=== PATIENT | female | born 1985 | race Caucasian/White ===

== ENCOUNTER 2017-11-24 14:56 | Emergency (ER) | payer OTHER, SELFPAY ==
--- NOTE | 2017-11-24 16:38 | RAD REPORT ---
EXAM DESCRIPTION: CT - Stone Protocol - 11/24/2017 4:12 pm CLINICAL HISTORY: Left mid back pain, dysuria COMPARISON: None. TECHNIQUE: Axial 5 mm thick images were obtained without oral or IV contrast. The [id number] span s the entirety of the system including uppermost abdomen and lung bases. All CT scans are performed using dose optimization technique as appropriate and may include automated exposure control or mA/KV adjustment according to patient size. FINDINGS: No hydronephrosis is present and no obstructing ureteral calculi. No suspicious renal mass es. Isodense masses and pyelonephritis are not excluded on a stone protocol CT scan. Mostly contracte d urinary bladder shows no gross abnormality. Uterus and ovaries show no suspicious finding. Normal f or age sized cysts seen. Largest cyst in the left ovary is 2.0 cm. No evidence for cyst rupture or he morrhage. Nabothian cyst is present in the lower cervix. IUD is in place appearing well positioned. Liver and spleen show no suspicious findings. Gallbladder is mostly contracted. No biliary tree dilat ation. No significant adrenal finding. There is masslike fullness at the pancreatic tail. Pancreatic parenchyma cannot be distinguished from adjacent vasculature. There is no stranding seen in the adjac ent fat. No suspicious bowel findings. The appendix is identified normal. No hernia, mass or bulky lymphadenopathy noted. No free air, free fluid or inflammatory stranding. No significant bony abnormality. IMPRESSION: No hydronephrosis, obstructing calculus or acute finding. Isodense masses and pyelone phritis are not excluded. Masslike fullness at the pancreatic tail may simply be summation artifact.Exam is limited by the abse nce of oral and IV contrast. Given the patient history of left mid abdomen pain, a repeat CT study of the abdomen with oral and IV contrast could be performed. No acute GI or INSURANCE CASE MANAGER process.
[2017-11-24 16:52] LABS: Calcium Oxalate Crystals- Ur FEW (NONE SEEN); Urine Bacteria <20 /HPF (<20); Urine Culture Reflex Order NOT NEEDED; Urine Mucus SLIGHT /HPF (NONE SEEN); Urine RBC <5 /HPF (NONE SEEN)
--- NOTE | 2017-11-24 17:12 | EDPHYS ---
Physician Documentation [facility] Name: Janelle Orr Age: 32 yrs Sex: Female : 1985 Arrival Date: 11/24/2017 Time: 15:00 Bed 15 Private MD: ED Physician Stefano Montanez HPI: 11/24 17:07 This 32 yrs old Female presents to ER via Ambulatory with complaints of Back jr8 Pain. 17:07 The patient presents with pain that is acute, with no known mechanism of injury. The jr8 symptoms are located in the left flank. Onset: The symptoms/episode began/occurred gradually. The pain does not radiate. Associated signs and symptoms: The patient has no apparent associated signs or symptoms. The problem was sustained from unknown cause. Modifying factors: The patient symptoms are alleviated by nothing, the patient symptoms are aggravated by movement. Severity of symptoms: At their worst the symptoms were moderate, in the emergency department the symptoms have improved. The patient has experienced similar episodes in the past, several times. The patient has not recently seen a physician. 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 - Social history:: Smoking status: Patient/guardian denies using tobacco. - Ebola Screening: : Patient negative for fever greater than or equal to 101.5 degrees Fahrenheit, and additional compatible Ebola Virus Disease symptoms Patient denies exposure to infectious person Patient denies travel to an Ebola-affected area in the 21 days before illness onset No symptoms or risks identified at this time. ROS: 17:07 Eyes: Negative for injury, pain, redness, and discharge, ENT: Negative for injury, jr8 pain, and discharge, Neck: Negative for injury, pain, and swelling, Cardiovascular: Negative for chest pain, palpitations, and edema, Respiratory: Negative for shortness of breath, cough, wheezing, and pleuritic chest pain, Abdomen/GI: Negative for abdominal pain, nausea, vomiting, diarrhea, and constipation, MS/Extremity: Negative for injury and deformity, Skin: Negative for injury, rash, and discoloration, Neuro: Negative for headache, weakness, numbness, tingling, and seizure. 17:07 Back: Positive for pain with movement, flank pain. Exam: 17:07 Eyes: Pupils equal round and reactive to light, extra-ocular motions intact. Lids and jr8 lashes normal. Conjunctiva and sclera are non-icteric and not injected. Cornea within normal limits. Periorbital areas with no swelling, redness, or edema. ENT: Nares patent. No nasal discharge, no septal abnormalities noted. Tympanic membranes are normal and external auditory canals are clear. Oropharynx with no redness, swelling, or masses, exudates, or evidence of obstruction, uvula midline. Mucous membranes moist. Neck: Trachea midline, no thyromegaly or masses palpated, and no cervical lymphadenopathy. Supple, full range of motion without nuchal rigidity, or vertebral point tenderness. No Meningismus. Cardiovascular: Regular rate and rhythm with a normal S1 and S2. No gallops, murmurs, or rubs. Normal PMI, no JVD. No pulse deficits. Respiratory: Lungs have equal breath sounds bilaterally, clear to auscultation and percussion. No rales, rhonchi or wheezes noted. No increased work of breathing, no retractions or nasal flaring. Abdomen/GI: Soft, non-tender, with normal bowel sounds. No distension or tympany. No guarding or rebound. No evidence of tenderness throughout. Skin: Warm, dry with normal turgor. Normal color with no rashes, no lesions, and no evidence of cellulitis. MS/ Extremity: Pulses equal, no cyanosis. Neurovascular intact. Full, normal range of motion. Neuro: Awake and alert, GCS 15, oriented to person, place, time, and situation. Cranial nerves II-XII grossly intact. Motor strength 5/5 in all extremities. Sensory grossly intact. Cerebellar exam normal. Normal gait. 17:07 Back: pain, that is moderate, of the left flank, ROM is painful, normal spinal alignment noted, CVA tenderness, is absent. Vital Signs: 15:18 BP 151 / 88; Pulse 97; Resp 16; Temp 97.8; Pulse Ox 98% on R/A; Weight 90.72 kg; Height aj 5 ft. 4 in. (162.56 cm); 15:30 BP 130 / 73; Pulse 79; Resp 16 S; Pulse Ox 98% on R/A; jl7 16:22 BP 131 / 85; Pulse 74; Resp 16 S; Pulse Ox 99% on R/A; jl7 17:35 BP 125 / 80; Pulse 75; Resp 16 S; Pulse Ox 100% on R/A; jl7 15:18 Body Mass Index 34.33 (90.72 kg, 162.56 cm) aj MDM: 15:22 Patient medically screened. jr8 17:09 Data reviewed: vital signs, nurses notes, lab test result(s), radiologic studies, CT jr8 scan. Data interpreted: Pulse oximetry: on room air is 99 %. Interpretation: normal. Counseling: I had a detailed discussion with the patient and/or guardian regarding: the historical points, exam findings, and any diagnostic results supporting the discharge/admit diagnosis, radiology results, the need for outpatient follow up, a family practitioner, to return to the emergency department if symptoms worsen or persist or if there are any questions or concerns that arise at home. ED course: Patient without abdominal tenderness with palpation or at rest. Less likely for the pancreatic findings to be mass like. More likely artifact. Patient only has pain to left back/flank region. Will put on medication and told to f/u with PCP. Family and patient good with this . 11/24 15:32 Order name: Urine Microscopic Only; Complete Time: 16:54 jr8 11/24 15:40 Order name: Urine Dipstick--Ancillary (enter results) 11/24 15:32 Order name: Urine Test (obtain specimen); Complete Time: 15:33 jr8 11/24 15:32 Order name: Urine Dipstick-Ancillary (obtain specimen); Complete Time: 15:33 jr8 11/24 15:40 Order name: Urine --Ancillary (enter results) 11/24 15:54 Order name: CT Stone Protocol; Complete Time: 16:39 jr8 Administered Medications: No medications were administered Disposition: 17:55 Co-signature as Attending Physician, Stefano Montanez MD. rn Disposition: 11/24/17 17:11 Discharged to Home. Impression: Back pain. - Condition is Stable. - Discharge Instructions: Back Pain, Adult. - Prescriptions for Cyclobenzaprine 10 mg Oral Tablet - take 1 tablet by ORAL route every 8 hours As needed; 30 tablet. Ultracet 37.5- 325 mg Oral Tablet - take 1 tablet by ORAL route every 6 hours - for up to 5 days; do not exceed 8 tablets per day.; 30 tablet. - Medication Reconciliation Form, Thank You Letter, Antibiotic Education, Prescription Opioid Use form. - Follow up: Private Physician; When: 2 - 3 days; Reason: Recheck today's complaints, Continuance of care, Re-evaluation by your physician. - Problem is new. - Symptoms have improved. Signatures: Dispatcher [employer] EDMS Janelle Parker RN RN Stefano Myers MD MD rn Roszak, Josh, PA PA jrAnne Marie Whittington RN RN jl7 Corrections: (The following items were deleted from the chart) 17:35 17:11 11/24/2017 17:11 Discharged to Home. Impression: Back pain. Condition is Stable. jl7 Forms are Medication Reconciliation Form, Thank You Letter, Antibiotic Education, Prescription Opioid Use. Follow up: Private Physician; When: 2 - 3 days; Reason: Recheck today's complaints, Continuance of care, Re-evaluation by your physician. Problem is new. Symptoms have improved. jr8
--- NOTE | 2017-11-24 17:12 | ER ---
Nurse's Notes [facility] Name: Janelle Orr Age: 32 yrs Sex: Female : 1985 Arrival Date: 11/24/2017 Time: 15:00 Bed 15 Private MD: Diagnosis: Back pain Presentation: 11/24 15:17 Presenting complaint: Patient states: Left mid back pain for 3 weeks and burning with aj urination. Transition of care: patient was not received from another setting of care. Onset of symptoms was November 05, 2017. Risk Assessment: Do you want to hurt yourself or someone else? Patient reports no desire to harm self or others. Initial Sepsis Screen: Does the patient meet any 2 criteria? No. Patient's initial sepsis screen is negative. Does the patient have a suspected source of infection? No. Patient's initial sepsis screen is negative. Care prior to arrival: None. 15:17 Method Of Arrival: Ambulatory aj 15:17 Acuity: SHAGGY 3 aj Triage Assessment: 15:18 General: Appears in no apparent distress. comfortable, Behavior is cooperative, aj anxious. Pain: Complains of pain in left mid back. Neuro: Level of Consciousness is awake, alert, obeys commands, Oriented to person, place, time, situation, Appropriate for age. Respiratory: Airway is patent Respiratory effort is even, unlabored, Respiratory pattern is regular, symmetrical. : Reports burning with urination, pain in left in lower back. Musculoskeletal: Range of motion: intact in all extremities. 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 - Social history:: Smoking status: Patient/guardian denies using tobacco. - Ebola Screening: : Patient negative for fever greater than or equal to 101.5 degrees Fahrenheit, and additional compatible Ebola Virus Disease symptoms Patient denies exposure to infectious person Patient denies travel to an Ebola-affected area in the 21 days before illness onset No symptoms or risks identified at this time. Screenin:22 Abuse screen: Denies threats or abuse. Denies injuries from another. Nutritional jl7 screening: No deficits noted. Tuberculosis screening: No symptoms or risk factors identified. Fall Risk None identified. Total Ibarra Fall Scale indicates No Risk (0-24 pts). Assessment: 15:30 General: Appears in no apparent distress. uncomfortable, Behavior is calm, cooperative, jl7 appropriate for age. Pain: Complains of pain in left mid back. Neuro: Level of Consciousness is awake, alert, obeys commands, Oriented to person, place, time, situation. Cardiovascular: Patient's skin is warm and dry. Respiratory: Airway is patent Respiratory effort is even, unlabored, Respiratory pattern is regular, symmetrical. GI: No signs and/or symptoms were reported involving the gastrointestinal system. : Reports burning with urination. EENT: No signs and/or symptoms were reported regarding the EENT system. Derm: Skin is pink, warm \T\ dry. 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 Vital Signs: 15:18 BP 151 / 88; Pulse 97; Resp 16; Temp 97.8; Pulse Ox 98% on R/A; Weight 90.72 kg; Height aj 5 ft. 4 in. (162.56 cm); 15:30 BP 130 / 73; Pulse 79; Resp 16 S; Pulse Ox 98% on R/A; jl7 16:22 BP 131 / 85; Pulse 74; Resp 16 S; Pulse Ox 99% on R/A; jl7 17:35 BP 125 / 80; Pulse 75; Resp 16 S; Pulse Ox 100% on R/A; jl7 15:18 Body Mass Index 34.33 (90.72 kg, 162.56 cm) ED Course: 15:00 Patient arrived in ED. mr 15:18 Triage completed. aj 15:18 Arm band placed on right wrist. Patient placed in an exam room. aj 15:21 Anne Marie Malloy, JUAN is Primary Nurse. jl7 15:22 Reinaldo Sykes PA is PHCP. jr8 15:22 Stefano Montanez MD is Attending Physician. jr8 15:33 Urine collected: clean catch specimen, cloudy. 5 15:33 Urine Microscopic Only Sent. 5 15:58 Radiology exam delayed due to test not completed at this time. jg6 16:12 CT Stone Protocol In Process Unspecified. EDMS 16:12 CT completed. Patient tolerated procedure well. Patient moved back from CT. vr 16:22 Patient has correct armband on for positive identification. Placed in gown. Bed in low jl7 position. Call light in reach. Side rails up X 1. Pulse ox on. NIBP on. Warm blanket given. 17:34 No provider procedures requiring assistance completed. Patient did not have IV access jl7 during this emergency room visit. Administered Medications: No medications were administered Outcome: 17:11 Discharge ordered by . mirlande 17:34 Discharged to home ambulatory. jl7 17:34 Condition: stable 17:34 Discharge instructions given to patient, family, Instructed on discharge instructions, follow up and referral plans. medication usage, Demonstrated understanding of instructions, follow-up care, medications, Prescriptions given X 2. 17:35 Patient left the ED. jl7 Signatures: Dispatcher [employer] EDMS Janelle Parker, RN RN bettye Quintero, Lawanda mr ChenGabriella Reinaldo Sykes, RATNA PA jrBelkis Sorto Anne Marie Aragon RN RN jl7 Denise Ly Corrections: (The following items were deleted from the chart) 16:24 16:22 Fall Risk IV access (20 points). Total Ibarra Fall Scale indicates No Risk (0-24 jl7 pts). jl7
[2017-11-24 17:43] LABS: Urine Blood 1+ (NEG); Urine Glucose NEGATIVE (NEG); Urine Protein NEGATIVE (NEG); Urine pH 5.5 (5.0-7.0)
[2017-11-24 17:51] VITALS: TEMP 97.8
[2017-11-24 17:55] VITALS: BP 125/80; O2SAT 100
== END 2017-11-24 17:35 | disposition home or self-care (01) ==
LOC: ER 14:56
DX: M54.5 Low back pain (principal); F41.8 Other specified anxiety disorders
CPT/HCPCS: 74176; 76377; 81003; 81015; 81025; 99284

== ENCOUNTER 2017-11-29 17:59 | Emergency (ER) | payer SELFPAY ==
[2017-11-29] MEDS ORDERED: NA CHLORIDE 0.9% 500 ML ONE (18:56)
[2017-11-29 19:08] LABS: Absolute Monocytes 0.6 K/uL (0.1-1.3); Absolute Neutrophil 5.6 K/uL (1.8-8.0); Basophils % 0.5 % (0-1.3); Eosinophils % 1.4 % (0-4.4); Hematocrit 39.2 % (36.0-45.0); Lymphocytes % 24.2 % (15.3-44.8); MCH 28.8 pg (27.0-35.0); MCV 85.9 fL (80-100); MPV 10.5 fL (7.6-11.3); RBC Red Blood Cell Count 4.57 M/uL (3.86-4.86)
[2017-11-29 19:09] LABS: Protime INR 1.06
[2017-11-29 19:26] LABS: ALT/SGPT 21 U/L (12-78); AST/SGOT 14 U/L (15-37); Alkaline Phosphatase 69 U/L (45-117); BUN Blood Urea Nitrogen 11 mg/dL (7-18); Bicarbonate 27 mmol/L (21-32); Bilirubin Direct < 0.1 mg/dL (0-0.2); Bilirubin Total 0.2 mg/dL (0.2-1.0); Glucose Level 71 mg/dL (74-106); Lipase 145 U/L (73-393); Magnesium 2.2 mg/dL (1.8-2.4); NT PRO-BNP 138 pg/mL (<125); Potassium 3.1 mmol/L (3.5-5.1); Protein, Total 8.2 g/dL (6.4-8.2); Sodium Level 141 mmol/L (136-145); Troponin (Emerg Dept Use Only) < 0.02 ng/mL (0.0-0.045)
[2017-11-29 20:12] LABS: Urine Blood NEGATIVE (NEG); Urine Glucose NEGATIVE (NEG); Urine Protein NEGATIVE (NEG); Urine pH 7.5 (5.0-7.0)
--- NOTE | 2017-11-29 20:26 | RAD REPORT ---
EXAM DESCRIPTION: Alen Single View11/29/2017 7:46 pm CLINICAL HISTORY: Chest pain COMPARISON: None FINDINGS: The lungs appear clear of acute infiltrate. The heart is normal size Postsurgical changes involve the chest. IMPRESSION: No acute abnormalities displayed
--- NOTE | 2017-11-29 20:30 | RAD REPORT ---
EXAM DESCRIPTION: CT - Chest For Pe Angio - 11/29/2017 8:20 pm CLINICAL HISTORY: Chest pain COMPARISON: None. TECHNIQUE: Dynamically enhanced axial 3 mm thick images of the chest were obtained during administra tion of <100> mL Isovue 370 IV contrast. Coronal and oblique reconstruction images were generated and reviewed. Exam utilizes a protocol for optimal evaluation of pulmonary arterial tree. Maximum intensity projections 3D imaging was utilized All CT scans are performed using dose optimization technique as appropriate and may include automated exposure control or mA/KV adjustment according to patient size. FINDINGS: A pulmonary embolus is not seen. A thoracic aortic aneurysm is not noted. A pleural effusion is not seen. A pericardial effusion is not seen. A lung consolidation is not present. A 17 millimeter oval density is present within the outer left breast IMPRESSION: Negative for a pulmonary embolism. 17 millimeter oval density within left breast. Nonemergent breast ultrasound is recommended
--- NOTE | 2017-11-29 20:37 | EDPHYS ---
Physician Documentation [facility] Name: Janelle Orr Age: 32 yrs Sex: Female : 1985 Arrival Date: 11/29/2017 Time: 18:02 Bed 23 Private MD: ED Physician Justin Cabrera HPI: 11/29 18:43 This 32 yrs old Female presents to ER via Ambulatory with complaints of Chest latanya Pain, Shortness Of Breath. 18:43 The patient or guardian reports chest pain that is located primarily in the anterior latanya chest wall, bilaterally. DIRECTOR RADIO NEWS: 18:13 LMP N/A - control method bp Historical: - Allergies: 18:13 No Known Allergies; bp - Home Meds: 18:13 Lamictal 200 mg oral tab [Active]; Zoloft 150 MG oral tab 1 tab once daily [Active]; bp - PMHx: 18:13 Anxiety; Depression; bp - Immunization history:: Adult Immunizations up to date. - Social history:: Smoking status: Patient/guardian denies using tobacco. - Ebola Screening: : Patient negative for fever greater than or equal to 101.5 degrees Fahrenheit, and additional compatible Ebola Virus Disease symptoms Patient denies exposure to infectious person Patient denies travel to an Ebola-affected area in the 21 days before illness onset No symptoms or risks identified at this time. - Family history:: not pertinent. ROS: 18:43 Constitutional: Negative for fever, chills, and weight loss, Eyes: Negative for injury, latanya pain, redness, and discharge, ENT: Negative for injury, pain, and discharge, Neck: Negative for injury, pain, and swelling, Abdomen/GI: Negative for abdominal pain, nausea, vomiting, diarrhea, and constipation, Back: Negative for injury and pain, : Negative for injury, bleeding, discharge, and swelling, MS/Extremity: Negative for injury and deformity, Skin: Negative for injury, rash, and discoloration, Neuro: Negative for headache, weakness, numbness, tingling, and seizure, Psych: Negative for depression, anxiety, suicide ideation, homicidal ideation, and hallucinations, Allergy/Immunology: Negative for hives, rash, and allergies, Endocrine: Negative for neck swelling, polydipsia, polyuria, polyphagia, and marked weight changes, Hematologic/Lymphatic: Negative for swollen nodes, abnormal bleeding, and unusual bruising. 18:43 Cardiovascular: Positive for chest pain. 18:43 Respiratory: Positive for shortness of breath. 18:43 Respiratory: Positive for pleurisy. latanya Exam: 18:43 Constitutional: This is a well developed, well nourished patient who is awake, alert, latanya and in no acute distress. Head/Face: Normocephalic, atraumatic. Eyes: Pupils equal round and reactive to light, extra-ocular motions intact. Lids and lashes normal. Conjunctiva and sclera are non-icteric and not injected. Cornea within normal limits. Periorbital areas with no swelling, redness, or edema. ENT: Nares patent. No nasal discharge, no septal abnormalities noted. Tympanic membranes are normal and external auditory canals are clear. Oropharynx with no redness, swelling, or masses, exudates, or evidence of obstruction, uvula midline. Mucous membranes moist. Neck: Trachea midline, no thyromegaly or masses palpated, and no cervical lymphadenopathy. Supple, full range of motion without nuchal rigidity, or vertebral point tenderness. No Meningismus. Chest/axilla: Normal chest wall appearance and motion. Nontender with no deformity. No lesions are appreciated. Cardiovascular: Regular rate and rhythm with a normal S1 and S2. No gallops, murmurs, or rubs. Normal PMI, no JVD. No pulse deficits. Respiratory: Lungs have equal breath sounds bilaterally, clear to auscultation and percussion. No rales, rhonchi or wheezes noted. No increased work of breathing, no retractions or nasal flaring. Abdomen/GI: Soft, non-tender, with normal bowel sounds. No distension or tympany. No guarding or rebound. No evidence of tenderness throughout. Back: No spinal tenderness. No costovertebral tenderness. Full range of motion. Skin: Warm, dry with normal turgor. Normal color with no rashes, no lesions, and no evidence of cellulitis. MS/ Extremity: Pulses equal, no cyanosis. Neurovascular intact. Full, normal range of motion. Neuro: Awake and alert, GCS 15, oriented to person, place, time, and situation. Cranial nerves II-XII grossly intact. Motor strength 5/5 in all extremities. Sensory grossly intact. Cerebellar exam normal. Normal gait. Psych: Awake, alert, with orientation to person, place and time. Behavior, mood, and affect are within normal limits. 18:43 Musculoskeletal/extremity: DVT Exam: No signs of deep vein thrombosis. no pain, no swelling, no tenderness, negative Homans' sign noted on exam, no appreciated bluish discoloration, no erythema, no increased warmth. Vital Signs: 18:13 BP 130 / 84; Pulse 87; Resp 20; Temp 97.8; Pulse Ox 99% ; Weight 90.72 kg; Height 5 ft. bp 4 in. (162.56 cm); 19:01 BP 138 / 78; Pulse 78; Resp 17; Pulse Ox 100% on R/A; lp1 19:45 BP 115 / 61; Pulse 77; Resp 16; Pulse Ox 99% on R/A; lp1 20:30 BP 119 / 64; Pulse 73; Resp 15; Pulse Ox 99% on R/A; lp1 18:13 Body Mass Index 34.33 (90.72 kg, 162.56 cm) bp MDM: 18:25 Patient medically screened. [facility] 18:44 Data reviewed: vital signs, nurses notes, lab test result(s), EKG, radiologic studies, [facility] CT scan, plain films. 11/29 18:41 Order name: Basic Metabolic Panel; Complete Time: 19:48 [facility] 11/29 18:41 Order name: CBC with Diff; Complete Time: 20:03 [facility] 11/29 18:41 Order name: LFT's; Complete Time: 19:48 [facility] 11/29 18:41 Order name: Magnesium; Complete Time: 19:48 [facility] 11/29 18:41 Order name: NT PRO-BNP; Complete Time: 19:48 [facility] 11/29 18:41 Order name: PT-INR; Complete Time: 19:48 [facility] 11/29 18:41 Order name: Troponin (emerg Dept Use Only); Complete Time: 19:48 [facility] 11/29 18:41 Order name: XRAY Chest (1 view); Complete Time: 20:33 [facility] 11/29 18:41 Order name: Lipase; Complete Time: 19:48 [facility] 11/29 18:41 Order name: CT Chest For PE Angio; Complete Time: 20:33 [facility] 11/29 18:44 Order name: Urine Dipstick--Ancillary (enter results); Complete Time: 20:18 11/29 18:44 Order name: Urine --Ancillary (enter results); Complete Time: 20:18 bd 11/29 18:40 Order name: EKG - Nurse/Tech; Complete Time: 18:40 tw2 11/29 18:40 Order name: EKG; Complete Time: 18:41 tw2 11/29 18:41 Order name: Cardiac monitoring; Complete Time: 18:47 [facility] 11/29 18:41 Order name: IV Saline Lock; Complete Time: 18:48 [facility] 11/29 18:41 Order name: Labs collected and sent; Complete Time: 18:48 [facility] 11/29 18:41 Order name: O2 Per Protocol; Complete Time: 18:48 [facility] 11/29 18:41 Order name: O2 Sat Monitoring; Complete Time: 18:48 [facility] 11/29 18:43 Order name: Urine Dipstick-Ancillary (obtain specimen); Complete Time: 18:47 [facility] 11/29 18:43 Order name: Urine Test (obtain specimen); Complete Time: 18:47 [facility] Administered Medications: 18:51 Drug: NS 0.9% 500 ml Route: IV; Rate: bolus; Site: right antecubital; tw2 20:45 Follow up: IV Status: Completed infusion; IV Intake: 500ml lp1 20:43 Drug: Potassium Effervescent Tablet 50 mEq Route: PO; lp1 21:01 Follow up: Response: No adverse reaction lp1 20:43 Drug: D50W 25 ml Route: IVP; Site: right antecubital; lp1 21:01 Follow up: Response: No adverse reaction lp1 Disposition: 11/29/17 20:37 Discharged to Home. Impression: Dyspnea, unspecified, Other chest pain - left breast nodule, follow up outpatient, Hypoglycemia, unspecified, Hypokalemia. - Condition is Stable. - Discharge Instructions: Breast Cyst, Nonspecific Chest Pain, Potassium Content of Foods, Hypoglycemia, Shortness of Breath, Nonspecific Chest Pain, Ieyb-[id number]-Pzaa, Hypoglycemia, Xkiw-vc-Vgbu. - Medication Reconciliation Form, Thank You Letter, Antibiotic Education, Prescription Opioid Use form. - Follow up: Private Physician; When: 2 - 3 days; Reason: Recheck today's complaints, Continuance of care, Re-evaluation by your physician. Follow up: Albaro Gongora; When: 2 - 3 days; Reason: Recheck today's complaints, Re-evaluation by your physician. Follow up: Dell Webber MD; When: 2 - 3 days; Reason: Recheck today's complaints, Re-evaluation by your physician. - Problem is new. - Symptoms have improved. Signatures: Dispatcher [employer] Justin Hess MD MD cha Pena, Laura RN RN lp1 Donna Cole RN RN tw2 Baron Khan RN RN bp Corrections: (The following items were deleted from the chart) 18:48 18:41 EKG - Nurse/Tech ordered. [facility] tw2 20:37 20:37 11/29/2017 20:37 Discharged to Home. Impression: Dyspnea, unspecified; Other latanya chest pain; Hypoglycemia, unspecified; Hypokalemia. Condition is Stable. Discharge Instructions: Nonspecific Chest Pain, Shortness of Breath, Nonspecific Chest Pain, Fjpy-[id number], Potassium Content of Foods, Hypoglycemia, Hypoglycemia, Qtdm-[id number]. Forms are Medication Reconciliation Form, Thank You Letter, Antibiotic Education, Prescription Opioid Use. Follow up: Private Physician; When: 2 - 3 days; Reason: Recheck today's complaints, Continuance of care, Re-evaluation by your physician. Follow up: Albaro Gongora; When: 2 - 3 days; Reason: Recheck today's complaints, Re-evaluation by your physician. Problem is new. Symptoms have improved. [facility] 20:41 20:37 11/29/2017 20:37 Discharged to Home. Impression: Dyspnea, unspecified; Other latanya chest pain; Hypoglycemia, unspecified; Hypokalemia. Condition is Stable. Discharge Instructions: Nonspecific Chest Pain, Shortness of Breath, Nonspecific Chest Pain, Amka-ga-[id number], Potassium Content of Foods, Hypoglycemia, Hypoglycemia, Hpba-eq-Jntu, Breast Cyst. Forms are Medication Reconciliation Form, Thank You Letter, Antibiotic Education, Prescription Opioid Use. Follow up: Private Physician; When: 2 - 3 days; Reason: Recheck today's complaints, Continuance of care, Re-evaluation by your physician. Follow up: Albaro Gongora; When: 2 - 3 days; Reason: Recheck today's complaints, Re-evaluation by your physician. Follow up: Dell Webber; When: 2 - 3 days; Reason: Recheck today's complaints, Re-evaluation by your physician. Problem is new. Symptoms have improved. latanya 21:02 20:41 11/29/2017 20:37 Discharged to Home. Impression: Dyspnea, unspecified; Other lp1 chest pain - left breast nodule, follow up outpatient; Hypoglycemia, unspecified; Hypokalemia. Condition is Stable. Discharge Instructions: Nonspecific Chest Pain, Shortness of Breath, Nonspecific Chest Pain, Ynsq-[id number], Potassium Content of Foods, Hypoglycemia, Hypoglycemia, Zwxj-qs-Nyaz, Breast Cyst. Forms are Medication Reconciliation Form, Thank You Letter, Antibiotic Education, Prescription Opioid Use. Follow up: Private Physician; When: 2 - 3 days; Reason: Recheck today's complaints, Continuance of care, Re-evaluation by your physician. Follow up: Albaro Gongora; When: 2 - 3 days; Reason: Recheck today's complaints, Re-evaluation by your physician. Follow up: Dell Webber; When: 2 - 3 days; Reason: Recheck today's complaints, Re-evaluation by your physician. Problem is new. Symptoms have improved. latanya
--- NOTE | 2017-11-29 20:37 | ER ---
Nurse's Notes [facility] Name: Janelle Orr Age: 32 yrs Sex: Female : 1985 Arrival Date: 11/29/2017 Time: 18:02 Bed 23 Private MD: Diagnosis: Dyspnea, unspecified;Other chest pain-left breast nodule, follow up outpatient;Hypoglycemia, unspecified;Hypokalemia Presentation: 11/29 18:09 Presenting complaint: Presenting complaint: Patient states: I FEEL HEAVY, AND I'M bp HAVING SHARP CHEST PAINS, I KNOW SOMETHING'S WRONG. 18:12 Transition of care: patient was not received from another setting of care. Onset of bp symptoms was November 29, 2017. Risk Assessment: Do you want to hurt yourself or someone else? Patient reports no desire to harm self or others. Initial Sepsis Screen: Does the patient meet any 2 criteria? No. Patient's initial sepsis screen is negative. Does the patient have a suspected source of infection? No. Patient's initial sepsis screen is negative. Care prior to arrival: None. 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 - Social history:: Smoking status: Patient/guardian denies using tobacco. - Ebola Screening: : Patient negative for fever greater than or equal to 101.5 degrees Fahrenheit, and additional compatible Ebola Virus Disease symptoms Patient denies exposure to infectious person Patient denies travel to an Ebola-affected area in the 21 days before illness onset No symptoms or risks identified at this time. - Family history:: not pertinent. Screenin:14 Abuse screen: Denies threats or abuse. Nutritional screening: No deficits noted. tw2 Tuberculosis screening: No symptoms or risk factors identified. Fall Risk None identified. Assessment: 18:24 General: Appears uncomfortable, Behavior is anxious. Pain: Complains of pain in chest tw2 Pain does not radiate. Pain began "since this morning". Neuro: Level of Consciousness is awake, alert, obeys commands, Oriented to person, place, time, situation. Neuro: Reports dizziness. Cardiovascular: Heart tones S1 S2 Patient's skin is warm and dry. Respiratory: Airway is patent. GI: No signs and/or symptoms were reported involving the gastrointestinal system. Abdomen is flat, Bowel sounds present X 4 quads. : No signs and/or symptoms were reported regarding the genitourinary system. EENT: No signs and/or symptoms were reported regarding the EENT system. Derm: No signs and/or symptoms reported regarding the dermatologic system. Musculoskeletal: Range of motion: intact in all extremities. 18:39 Reassessment: provider at bedside at this time. tw2 19:02 Reassessment: Patient is alert, oriented x 3, equal unlabored respirations, skin lp1 warm/dry/pink. Patient states continued feeling of tightness in chest but some improvement. 20:04 Reassessment: Patient to CT at this time. lp1 20:44 Reassessment: Patient appears in no apparent distress at this time. Patient is alert, lp1 oriented x 3, equal unlabored respirations, skin warm/dry/pink. Patient states feeling better. Patient states symptoms have improved. Vital Signs: 18:13 BP 130 / 84; Pulse 87; Resp 20; Temp 97.8; Pulse Ox 99% ; Weight 90.72 kg; Height 5 ft. bp 4 in. (162.56 cm); 19:01 BP 138 / 78; Pulse 78; Resp 17; Pulse Ox 100% on R/A; lp1 19:45 BP 115 / 61; Pulse 77; Resp 16; Pulse Ox 99% on R/A; lp1 20:30 BP 119 / 64; Pulse 73; Resp 15; Pulse Ox 99% on R/A; lp1 18:13 Body Mass Index 34.33 (90.72 kg, 162.56 cm) bp ED Course: 18:03 Patient arrived in ED. as 18:12 Triage completed. bp 18:13 Arm band placed on. bp 18:14 Donna Cole, RN is Primary Nurse. tw2 18:14 Arm band placed on. tw2 18:14 Bed in low position. Call light in reach. Adult w/ patient. yard hand on. Pulse tw2 ox on. NIBP on. 18:15 Patient maintains SpO2 saturation greater than 95% on room air. tw2 18:25 Justin Cabrera MD is Attending Physician. [facility] 18:44 Radiology exam delayed due to lab results not completed at this time. (BUN/Creatinine) test not completed at this time. 18:47 Inserted saline lock: 22 gauge in right antecubital area, using aseptic technique. tw2 Blood collected. 18:55 Report given to JUAN Lawrence. tw2 19:46 XRAY Chest (1 view) In Process Unspecified. EDMS 20:20 CT completed. Patient tolerated procedure well. Patient moved to CT. Patient moved back ok from CT. 20:21 CT Chest For PE Angio In Process Unspecified. EDMS 20:36 Albaro Gongora MD is Referral Physician. [facility] 20:37 Dell Webber MD is Referral Physician. [facility] 20:45 No provider procedures requiring assistance completed. lp1 21:01 IV discontinued, No redness/swelling at site. Pressure dressing applied. lp1 Administered Medications: 18:51 Drug: NS 0.9% 500 ml Route: IV; Rate: bolus; Site: right antecubital; tw2 20:45 Follow up: IV Status: Completed infusion; IV Intake: 500ml lp1 20:43 Drug: Potassium Effervescent Tablet 50 mEq Route: PO; lp1 21:01 Follow up: Response: No adverse reaction lp1 20:43 Drug: D50W 25 ml Route: IVP; Site: right antecubital; lp1 21:01 Follow up: Response: No adverse reaction lp1 Intake: 20:45 IV: 500ml; Total: 500ml. lp1 Outcome: 20:37 Discharge ordered by . [facility] 21:01 Discharged to home ambulatory, with family. lp1 21:01 Condition: good 21:01 Discharge instructions given to patient, Instructed on discharge instructions, follow up and referral plans. Demonstrated understanding of instructions, follow-up care. 21:02 Patient left the ED. lp1 Signatures: Dispatcher [employer] EDMD Justin Cabrera MD MD cha Jones, Susan sj Martinez, Amelia as Pena, Laura, RN RN lp1 Donna Cole RN RN tw2 Rehan Heller Brian, RN RN bp Corrections: (The following items were deleted from the chart) 18:12 18:09 Presenting complaint: bp bp
[2017-11-29] MEDS ORDERED: POTASSIUM 25 MEQ EFFERV TAB ONE (20:38)
[2017-11-29] MEDS ORDERED: D50W 25 GM/50 ML SYRINGE IV ONE (20:38)
[2017-11-29 21:17] VITALS: TEMP 97.8
[2017-11-29 21:20] VITALS: O2SAT 99
[2017-11-29 21:21] VITALS: BP 119/64
--- NOTE | 2017-11-30 08:39 | EKG ---
Test Date: 2017-11-29 Test Time: 18:31:38 Computer Architect: MEASUREMENT RESULTS: Intervals: Rate: 78 WI: 140 QRSD: 80 QT: 370 QTc: 421 Ary: P: 34 WI: 140 QRS: 85 T: 52 INTERPRETIVE STATEMENTS: Normal sinus rhythm Normal ECG Compared to ECG 01/27/2009 11:10:48 Sinus arrhythmia no longer present Right-axis deviation no longer present Incomplete right bundle-branch block no longer present Electronically Signed On 11-30-17 08:38:22 CDT by Obi Alejandro
== END 2017-11-29 21:02 | disposition home or self-care (01) ==
LOC: ER 17:59
DX: R07.89 Other chest pain (principal); N63.0 Unspecified lump in unspecified breast; E87.6 Hypokalemia; E16.2 Hypoglycemia, unspecified; F41.9 Anxiety disorder, unspecified; F32.9 Major depressive disorder, single episode, unspecified
CPT/HCPCS: 36415; 71045; 71275; 80048; 80076; 81003; 81025; 83690; 83735; 83880; 84484; 85025; 85610; 93005; 96361; 96374; 99285; Q9967

== ENCOUNTER 2017-12-26 08:12 | Emergency (ER) | payer SELFPAY ==
--- NOTE | 2017-12-26 10:33 | EDPHYS ---
Physician Documentation [facility] Name: Janelle Orr Age: 32 yrs Sex: Female : 1985 Arrival Date: 12/26/2017 Time: 08:16 Bed 13 Private MD: None, None ED Physician Stefano Montanez HPI: 12/26 08:33 This 32 yrs old Female presents to ER via Ambulatory with complaints of Flu kb Symptoms. 08:33 The patient or guardian reports cough, that is constant, described as mild, described kb as moderate, with no sputum, flu symptoms, myalgias. Onset: The symptoms/episode began/occurred 4 day(s) ago. Severity of symptoms: At their worst the symptoms were moderate, in the emergency department the symptoms are unchanged. Modifying factors: The symptoms are alleviated by nothing, the symptoms are aggravated by nothing. Associated signs and symptoms: Pertinent positives: sore throat, Pertinent negatives: chest pain, diarrhea, ear ache, fever, nausea, rhinorrhea, vomiting. The patient has not experienced similar symptoms in the past. The patient has not recently seen a physician. Pt c/o cough, congestion, sore throat, chills and body aches for 4 days.. 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 - Social history:: Smoking status: Patient/guardian denies using tobacco. - Ebola Screening: : No symptoms or risks identified at this time. ROS: 08:33 Cardiovascular: Negative for chest pain, palpitations, and edema, Abdomen/GI: Negative kb for abdominal pain, nausea, vomiting, diarrhea, and constipation, Back: Negative for injury and pain, MS/Extremity: Negative for injury and deformity, Skin: Negative for injury, rash, and discoloration, Neuro: Negative for headache, weakness, numbness, tingling, and seizure. 08:33 Constitutional: Positive for body aches, chills, malaise, Negative for fever, poor PO intake, weight loss. 08:33 ENT: Positive for sore throat. 08:33 Respiratory: Positive for cough, Negative for dyspnea on exertion, hemoptysis, orthopnea, pleurisy, shortness of breath, sputum production, wheezing. Exam: 08:33 Constitutional: This is a well developed, well nourished patient who is awake, alert, kb and in no acute distress. Head/Face: Normocephalic, atraumatic. ENT: Nares patent. No nasal discharge, no septal abnormalities noted. Tympanic membranes are normal and external auditory canals are clear. Oropharynx with no redness, swelling, or masses, exudates, or evidence of obstruction, uvula midline. Mucous membranes moist. Neck: Trachea midline, no thyromegaly or masses palpated, and no cervical lymphadenopathy. Supple, full range of motion without nuchal rigidity, or vertebral point tenderness. No Meningismus. Chest/axilla: Normal chest wall appearance and motion. Nontender with no deformity. No lesions are appreciated. Cardiovascular: Regular rate and rhythm with a normal S1 and S2. No gallops, murmurs, or rubs. Normal PMI, no JVD. No pulse deficits. Respiratory: Lungs have equal breath sounds bilaterally, clear to auscultation and percussion. No rales, rhonchi or wheezes noted. No increased work of breathing, no retractions or nasal flaring. Abdomen/GI: Soft, non-tender, with normal bowel sounds. No distension or tympany. No guarding or rebound. No evidence of tenderness throughout. Skin: Warm, dry with normal turgor. Normal color with no rashes, no lesions, and no evidence of cellulitis. MS/ Extremity: Pulses equal, no cyanosis. Neurovascular intact. Full, normal range of motion. Neuro: Awake and alert, GCS 15, oriented to person, place, time, and situation. Cranial nerves II-XII grossly intact. Motor strength 5/5 in all extremities. Sensory grossly intact. Cerebellar exam normal. Normal gait. Vital Signs: 08:22 BP 128 / 76; Pulse 97; Resp 16 S; Temp 98.6(O); Pulse Ox 97% on R/A; Weight 90.72 kg aa5 (R); Height 5 ft. 4 in. (162.56 cm) (R); Pain 7/10; 09:54 BP 115 / 59; Pulse 81; Resp 14; Pulse Ox 97% ; bp 11:03 BP 121 / 61; Pulse 79; Resp 16; Pulse Ox 98% ; bp 08:22 Body Mass Index 34.33 (90.72 kg, 162.56 cm) aa5 MDM: 08:24 Patient medically screened. kb 08:32 Data reviewed: vital signs, nurses notes. Data interpreted: Pulse oximetry: on room air kb is 97 %. Interpretation: normal. 10:24 Counseling: I had a detailed discussion with the patient and/or guardian regarding: the kb historical points, exam findings, and any diagnostic results supporting the discharge/admit diagnosis, lab results, the need for outpatient follow up, a family practitioner, to return to the emergency department if symptoms worsen or persist or if there are any questions or concerns that arise at home. 12/26 10:37 Order name: Influenza Screen (A ; Complete Time: 10:38 EDMS 12/26 10:37 Order name: Group A Streptococcus Rapid Sc; Complete Time: 10:38 EDMS 12/26 11:03 Order name: Throat Culture EDMS Administered Medications: 10:36 Drug: DuoNeb (3:1) (2.5 mg - 0.5 mg) 3 ml Route: Nebulizer; bp 11:01 Follow up: Response: Marked relief of symptoms bp Disposition: 15:33 Co-signature as Attending Physician, Stefano Montanez MD. rn Disposition: 12/26/17 10:25 Discharged to Home. Impression: Acute upper respiratory infection, unspecified. - Condition is Stable. - Discharge Instructions: Upper Respiratory Infection, Adult, [id number]. - Prescriptions for Albuterol Sulfate 90 mcg/actuation - inhale 1-2 puff by INHALATION route every 4-6 hours; 1 Inhaler. - Medication Reconciliation Form, Thank You Letter, Antibiotic Education, Prescription Opioid Use form. - Follow up: Emergency Department; When: As needed; Reason: Worsening of condition. Follow up: Private Physician; When: 2 - 3 days; Reason: Recheck today's complaints, Continuance of care, Re-evaluation by your physician. Signatures: Dispatcher [employer] EDMT Ciara Zamudio, PIPE CAULKER-C JALIL-Stefano Magana MD MD rn Calderon, Audri, RN RN aa5 Baorn Khan RN RN bp Corrections: (The following items were deleted from the chart) 11:04 10:25 12/26/2017 10:25 Discharged to Home. Impression: Acute upper respiratory bp infection, unspecified. Condition is Stable. Forms are Medication Reconciliation Form, Thank You Letter, Antibiotic Education, Prescription Opioid Use. Follow up: Emergency Department; When: As needed; Reason: Worsening of condition. Follow up: Private Physician; When: 2 - 3 days; Reason: Recheck today's complaints, Continuance of care, Re-evaluation by your physician. kb
--- NOTE | 2017-12-26 10:33 | ER ---
Nurse's Notes [facility] Name: Janelle Orr Age: 32 yrs Sex: Female : 1985 Arrival Date: 12/26/2017 Time: 08:16 Bed 13 Private MD: None, None Diagnosis: Acute upper respiratory infection, unspecified Presentation: 12/26 08:20 Presenting complaint: Patient states: body aches, cough, runny nose, and intermittent aa5 sore throat that began 4 days ago. 08:20 Method Of Arrival: Ambulatory aa5 08:20 Transition of care: patient was not received from another setting of care. Onset of aa5 symptoms was December 2017. Risk Assessment: Do you want to hurt yourself or someone else? Patient reports no desire to harm self or others. Initial Sepsis Screen: Does the patient meet any 2 criteria? No. Patient's initial sepsis screen is negative. Does the patient have a suspected source of infection? No. Patient's initial sepsis screen is negative. Care prior to arrival: None. 08:20 Acuity: SHAGGY 4 aa5 Triage Assessment: 08:30 General: Appears in no apparent distress. comfortable, obese, Behavior is cooperative, bp appropriate for age, anxious. 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 - Social history:: Smoking status: Patient/guardian denies using tobacco. - Ebola Screening: : No symptoms or risks identified at this time. Screenin:27 Abuse screen: Denies threats or abuse. Denies injuries from another. Nutritional bp screening: No deficits noted. Tuberculosis screening: No symptoms or risk factors identified. Fall Risk None identified. Assessment: 08:26 General: Appears in no apparent distress. comfortable, Behavior is cooperative, bp appropriate for age, anxious. Pain: Complains of pain in GENERALIZED. Neuro: Level of Consciousness is awake, alert, obeys commands, Oriented to person, place, time, situation, Appropriate for age. Cardiovascular: No deficits noted. Respiratory: Reports cough that is Airway is patent Respiratory effort is even, unlabored, Respiratory pattern is regular, symmetrical. GI: No signs and/or symptoms were reported involving the gastrointestinal system. : No signs and/or symptoms were reported regarding the genitourinary system. EENT: Reports pain when swallowing. Derm: No deficits noted. Musculoskeletal: Circulation, motion, and sensation intact. Range of motion: intact in all extremities. 09:53 Reassessment: ALL CURRENT STUDIES COMPLETED, RESULTS PENDING. bp 10:36 Reassessment: D/C ON HOLD FOR NEB TREATMENT. bp 11:02 Reassessment: PT D/C HOME AMBULATORY, DX WITH VIRAL URI. bp Vital Signs: 08:22 BP 128 / 76; Pulse 97; Resp 16 S; Temp 98.6(O); Pulse Ox 97% on R/A; Weight 90.72 kg aa5 (R); Height 5 ft. 4 in. (162.56 cm) (R); Pain 7/10; 09:54 BP 115 / 59; Pulse 81; Resp 14; Pulse Ox 97% ; bp 11:03 BP 121 / 61; Pulse 79; Resp 16; Pulse Ox 98% ; bp 08:22 Body Mass Index 34.33 (90.72 kg, 162.56 cm) aa5 ED Course: 08:16 Patient arrived in ED. mr 08:16 None, None is Private Physician. mr 08:16 Ciara Zamudio [facility]-C [facility]. kb 08:16 Stefano Montanez MD is Attending Physician. kb 08:21 Arm band placed on Patient placed in an exam room, on a stretcher. aa5 08:22 Baron Khan, JUAN is Primary Nurse. bp 08:24 Triage completed. aa5 08:27 Patient has correct armband on for positive identification. Bed in low position. Call bp light in reach. Side rails up X2. 08:31 Flu and/or RSV swab sent to lab. Strep swab sent to lab. bp 10:37 Strep Sent. bp 10:37 Flu Sent. bp 11:02 No provider procedures requiring assistance completed. Patient did not have IV access bp during this emergency room visit. Administered Medications: 10:36 Drug: DuoNeb (3:1) (2.5 mg - 0.5 mg) 3 ml Route: Nebulizer; bp 11:01 Follow up: Response: Marked relief of symptoms bp Outcome: 10:25 Discharge ordered by . dorota 11:02 Discharged to home ambulatory. bp 11:02 Condition: stable 11:02 Discharge instructions given to patient, Instructed on discharge instructions, follow up and referral plans. medication usage, Demonstrated understanding of instructions, follow-up care, medications, Prescriptions given X 1. 11:04 Patient left the ED. bp Signatures: Ciara Zamudio, JALIL-Chris GORDILLOP-Lawanda Block Audri, RN RN aa5 Baron Khan, JUAN RN bp
[2017-12-26] MEDS ORDERED: ALBUTEROL 2.5 MG/3 ML NEB SOL ONE (10:39)
[2017-12-26] MEDS ORDERED: IPRATROPIUM BROM 0.5MG/2.5ML ONE (10:39)
[2017-12-26 11:55] VITALS: TEMP 98.6
[2017-12-26 12:05] VITALS: BP 121/61; O2SAT 98
== END 2017-12-26 11:04 | disposition home or self-care (01) ==
LOC: ER 08:12
DX: J06.9 Acute upper respiratory infection, unspecified (principal)
CPT/HCPCS: 87070; 87081; 87804; 94640; 99284

== ENCOUNTER 2018-09-09 17:50 | Emergency (ER) | payer SELFPAY ==
--- OUTSIDE RECORDS SUMMARY | 2018-09-09 17:52 | XMS REPORT ---
:1985 [facility] Address [address] [place] [address] [address] [place] [address] Care Team Providers Name Role Phone Unavailable Unavailable Unavailable Problems This patient has no known problems. Allergies, Adverse Reactions, Alerts This patient has no known allergies or adverse reactions. Medications This patient has no known medications.
[2018-09-09] MEDS ORDERED: DIPHENHYDRAMINE 50 MG/ML VIAL ONE (18:35)
[2018-09-09] MEDS ORDERED: METOCLOPRAMIDE 10 MG/2mL INJ ONE (18:44)
[2018-09-09 18:55] LABS: Urine Blood TRACE (NEG); Urine Glucose NEGATIVE (NEG); Urine Protein NEGATIVE (NEG); Urine Specific Gravity 1.025 (1.005-1.030); Urine pH 6.5 (5.0-7.0)
--- NOTE | 2018-09-09 19:07 | RAD REPORT ---
EXAM DESCRIPTION: CT - Head Brain Wo Cont - 09/09/2018 6:54 pm CLINICAL HISTORY: Headache COMPARISON: 2016 TECHNIQUE: Computed axial tomography of the head was obtained. IV contrast was not requested. All CT scans are performed using dose optimization technique as appropriate and may include automated exposure control or mA/KV adjustment according to patient size. FINDINGS: An intracranial bleed is not seen . The ventricles are normal in caliber. No extra-axial fluid collection is noted. Fluid within the sinuses/ mastoids is not seen. IMPRESSION: No acute intracranial abnormality is seen. If patient's symptoms persist MRI of the bra in would be recommended.
--- NOTE | 2018-09-09 19:17 | ER ---
Nurse's Notes [facility] Name: Janelle Orr Age: 33 yrs Sex: Female : 1985 Arrival Date: 09/09/2018 Time: 17:53 Bed 25 Private MD: Diagnosis: Migraine Presentation: 09/09 17:55 Presenting complaint: Patient states: "the whole left side of my head is pounding aj1 really hard. Its been doing this for 2 weeks. I have an infected tooth in that area". Transition of care: patient was not received from another setting of care. Onset of symptoms was September 09, 2018. Risk Assessment: Do you want to hurt yourself or someone else? Patient reports no desire to harm self or others. Initial Sepsis Screen: Does the patient meet any 2 criteria? No. Patient's initial sepsis screen is negative. Does the patient have a suspected source of infection? No. Patient's initial sepsis screen is negative. Care prior to arrival: None. 17:55 Method Of Arrival: Ambulatory aj1 17:55 Acuity: SHAGGY 4 aj1 Triage Assessment: 17:56 Headache History: Denies prior headaches. General: Appears in no apparent distress. aj1 uncomfortable, Behavior is calm, cooperative, appropriate for age. Pain: Pain currently is 10 out of 10 on a pain scale. Pain began 2 weeks ago Also complains of nausea. Neuro: Level of Consciousness is awake, alert, obeys commands, Oriented to person, place, time, situation, Gait is steady, Speech is normal. Cardiovascular: Patient's skin is warm and dry. Respiratory: Airway is patent Respiratory effort is even, unlabored, Respiratory pattern is regular, symmetrical. 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 - Social history:: Smoking status: Patient/guardian denies using tobacco. - Ebola Screening: : Patient denies travel to an Ebola-affected area in the 21 days before illness onset. Screenin:53 Abuse screen: Denies threats or abuse. Denies injuries from another. Nutritional mg2 screening: No deficits noted. Tuberculosis screening: No symptoms or risk factors identified. Fall Risk IV access (20 points). Assessment: 18:52 General: Appears in no apparent distress. comfortable, Behavior is calm, cooperative. mg2 Pain: Complains of pain in left occipital area and left temporal area and left side of forehead and left side of the back of head and left frontal area Pain does not radiate. Pain currently is 7 out of 10 on a pain scale. Quality of pain is described as aching, Pain began gradually, 2 weeks now Is intermittent. Neuro: Level of Consciousness is awake, alert, obeys commands, Oriented to person, place, time, situation. Neuro: Reports headache in left. Cardiovascular: Capillary refill < 3 seconds Patient's skin is warm and dry. Respiratory: Airway is patent Respiratory effort is even, unlabored, Respiratory pattern is regular, symmetrical. GI: No signs and/or symptoms were reported involving the gastrointestinal system. : No signs and/or symptoms were reported regarding the genitourinary system. EENT: No signs and/or symptoms were reported regarding the EENT system. Derm: Skin is intact, is healthy with good turgor, Skin is pink, warm \\T\\ dry. normal. Musculoskeletal: Circulation, motion, and sensation intact. Capillary refill < 3 seconds. 19:25 Reassessment: Patient denies pain at this time. Patient states feeling better. Patient mg2 states symptoms have improved. Vital Signs: 17:56 BP 136 / 74; Pulse 78; Resp 18; Temp 97.6; Pulse Ox 99% on R/A; Weight 90.72 kg (R); aj1 Height 5 ft. 4 in. (162.56 cm) (R); Pain 10/10; 19:26 BP 122 / 78; Pulse 70; Resp 18; Temp 98.5; Pulse Ox 100% on R/A; Pain 0/10; mg2 17:56 Body Mass Index 34.33 (90.72 kg, 162.56 cm) aj1 ED Course: 17:53 Patient arrived in ED. mr 17:56 Triage completed. aj1 17:56 Arm band placed on Patient placed in an exam room. aj1 18:07 Fabien Anderson, RN is Primary Nurse. mg2 18:10 Reinaldo Sykes PA is PHCP. jr8 18:10 Justus Gipson MD is Attending Physician. jr8 18:37 Radiology exam delayed due to test not completed at this time. mw3 18:53 Patient has correct armband on for positive identification. mg2 18:53 No provider procedures requiring assistance completed. Inserted saline lock: 20 gauge mg2 in left antecubital area, using aseptic technique. Blood collected. 18:54 CT completed. Patient tolerated procedure well. Patient moved back from CT. mw3 18:55 CT Head Brain wo Cont In Process Unspecified. EDMS 19:26 IV discontinued, intact, bleeding controlled, No redness/swelling at site. Pressure mg2 dressing applied. Administered Medications: 18:37 Drug: Reglan 10 mg Route: IVP; Site: left antecubital; mg2 19:27 Follow up: Response: No adverse reaction; Marked relief of symptoms mg2 18:37 Drug: Benadryl 25 mg Route: IVP; Site: left antecubital; mg2 19:27 Follow up: Response: No adverse reaction; Marked relief of symptoms mg2 Outcome: 19:16 Discharge ordered by . jr8 19:26 Discharged to home ambulatory, with family. mg2 19:26 Condition: stable 19:26 Discharge instructions given to patient, family, Instructed on discharge instructions, follow up and referral plans. Demonstrated understanding of instructions, follow-up care, medications, Prescriptions given X 2. 19:28 Patient left the ED. mg2 Signatures: Dispatcher [employer] EDMS Bhargavi Schroeder RN RN [facility] Lawanda Quintero mr Reinaldo Sykes PA PA jr8 Fabien Anderson, JUAN RN mg2 Amalia Sierra mw3
--- NOTE | 2018-09-09 19:18 | EDPHYS ---
Physician Documentation [facility] Name: Janelle Orr Age: 33 yrs Sex: Female : 1985 Arrival Date: 09/09/2018 Time: 17:53 Bed 25 Private MD: ED Physician Justus Gipson HPI: 09/09 18:16 This 33 yrs old Female presents to ER via Ambulatory with complaints of jr8 Headache. 18:16 The patient complains of pain to the left frontal area, left side of the back of head, jr8 left side of forehead, left temporal area and left occipital area. The patient describes the headache as a pressure, throbbing. Onset: The symptoms/episode began/occurred suddenly, 2 week(s) ago, and became persistent. Associated signs and symptoms: Pertinent positives: nausea, vomiting. Severity of symptoms: At its worst the pain was moderate, in the emergency department the pain is unchanged. Headache History: Denies prior headaches. The patient has not experienced similar symptoms in the past. The patient has not recently seen a physician. 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 - Social history:: Smoking status: Patient/guardian denies using tobacco. - Ebola Screening: : Patient denies travel to an Ebola-affected area in the 21 days before illness onset. ROS: 18:16 Eyes: Negative for injury, pain, redness, and discharge, ENT: Negative for injury, jr8 pain, and discharge, Neck: Negative for injury, pain, and swelling, Cardiovascular: Negative for chest pain, palpitations, and edema, Respiratory: Negative for shortness of breath, cough, wheezing, and pleuritic chest pain, Back: Negative for injury and pain, MS/Extremity: Negative for injury and deformity, Skin: Negative for injury, rash, and discoloration. 18:16 Abdomen/GI: Positive for nausea and vomiting, Negative for abdominal pain, diarrhea, constipation, abdominal cramps, abdominal distension, anorexia, dysphagia, hematemesis, black/tarry stool, rectal pain, rectal bleeding, bowel incontinence, flatulence. 18:16 Neuro: Positive for headache, Negative for altered mental status, dizziness, gait disturbance, hearing loss, loss of consciousness, numbness, seizure activity, speech changes, syncope, near syncope, tingling, tinnitus, tremor, visual changes, weakness. Exam: 18:16 Eyes: Pupils equal round and reactive to light, extra-ocular motions intact. Lids and jr8 lashes normal. Conjunctiva and sclera are non-icteric and not injected. Cornea within normal limits. Periorbital areas with no swelling, redness, or edema. ENT: Nares patent. No nasal discharge, no septal abnormalities noted. Tympanic membranes are normal and external auditory canals are clear. Oropharynx with no redness, swelling, or masses, exudates, or evidence of obstruction, uvula midline. Mucous membranes moist. Neck: Trachea midline, no thyromegaly or masses palpated, and no cervical lymphadenopathy. Supple, full range of motion without nuchal rigidity, or vertebral point tenderness. No Meningismus. Cardiovascular: Regular rate and rhythm with a normal S1 and S2. No gallops, murmurs, or rubs. Normal PMI, no JVD. No pulse deficits. Respiratory: Lungs have equal breath sounds bilaterally, clear to auscultation and percussion. No rales, rhonchi or wheezes noted. No increased work of breathing, no retractions or nasal flaring. Abdomen/GI: Soft, non-tender, with normal bowel sounds. No distension or tympany. No guarding or rebound. No evidence of tenderness throughout. Back: No spinal tenderness. No costovertebral tenderness. Full range of motion. Skin: Warm, dry with normal turgor. Normal color with no rashes, no lesions, and no evidence of cellulitis. MS/ Extremity: Pulses equal, no cyanosis. Neurovascular intact. Full, normal range of motion. Neuro: Awake and alert, GCS 15, oriented to person, place, time, and situation. Cranial nerves II-XII grossly intact. Motor strength 5/5 in all extremities. Sensory grossly intact. Cerebellar exam normal. Normal gait. Vital Signs: 17:56 BP 136 / 74; Pulse 78; Resp 18; Temp 97.6; Pulse Ox 99% on R/A; Weight 90.72 kg (R); aj1 Height 5 ft. 4 in. (162.56 cm) (R); Pain 10/10; 19:26 BP 122 / 78; Pulse 70; Resp 18; Temp 98.5; Pulse Ox 100% on R/A; Pain 0/10; mg2 17:56 Body Mass Index 34.33 (90.72 kg, 162.56 cm) aj1 MDM: 18:11 Patient medically screened. jr8 19:15 Data reviewed: vital signs, nurses notes, radiologic studies, CT scan. Data jr8 interpreted: Pulse oximetry: on room air is 99 %. Interpretation: normal. Counseling: I had a detailed discussion with the patient and/or guardian regarding: the historical points, exam findings, and any diagnostic results supporting the discharge/admit diagnosis, radiology results, the need for outpatient follow up, a family practitioner, to return to the emergency department if symptoms worsen or persist or if there are any questions or concerns that arise at home. Response to treatment: the patient's symptoms have markedly improved after treatment. 09/09 18:47 Order name: Urine Dipstick--Ancillary (enter results); Complete Time: 18:56 ms 09/09 18:47 Order name: Urine --Ancillary (enter results); Complete Time: 18:56 ms 09/09 18:15 Order name: IV; Complete Time: 18:27 jr8 09/09 18:15 Order name: CT Head Brain wo Cont; Complete Time: 19:18 jr8 Administered Medications: 18:37 Drug: Reglan 10 mg Route: IVP; Site: left antecubital; mg2 19:27 Follow up: Response: No adverse reaction; Marked relief of symptoms mg2 18:37 Drug: Benadryl 25 mg Route: IVP; Site: left antecubital; mg2 19:27 Follow up: Response: No adverse reaction; Marked relief of symptoms mg2 Disposition: 09/10 07:21 Co-signature as Attending Physician, Justus Gipson MD. Disposition: 09/09/18 19:16 Discharged to Home. Impression: Migraine. - Condition is Stable. - Discharge Instructions: Migraine Headache. - Prescriptions for Fioricet 50- 325-40 mg Oral tablet - take 2 tablet by ORAL route every 4 hours as needed not to exceed 6 tablets per 24hrs; 20 tablet. Amoxicillin 875 mg Oral Tablet - take 1 tablet by ORAL route every 12 hours for 10 days; 20 tablet. - Medication Reconciliation Form, Thank You Letter, Antibiotic Education, Prescription Opioid Use form. - Follow up: Private Physician; When: 2 - 3 days; Reason: Recheck today's complaints, Continuance of care, Re-evaluation by your physician. - Problem is new. - Symptoms have improved. Signatures: Dispatcher [employer] EDBhargavi Linder RN RN aj1 Reinaldo Sykes PA PA jr8 Justus Gipson MD MD gs Fabien Anderson RN RN mg2 Corrections: (The following items were deleted from the chart) 09/09 19:28 19:16 09/09/2018 19:16 Discharged to Home. Impression: Migraine. Condition is Stable. mg2 Forms are Medication Reconciliation Form, Thank You Letter, Antibiotic Education, Prescription Opioid Use. Follow up: Private Physician; When: 2 - 3 days; Reason: Recheck today's complaints, Continuance of care, Re-evaluation by your physician. Problem is new. Symptoms have improved. jr8
[2018-09-09 21:09] VITALS: BP 122/78; TEMP 98.5; O2SAT 100
== END 2018-09-09 19:28 | disposition home or self-care (01) ==
LOC: ER 17:50
DX: G43.909 Migraine, unspecified, not intractable, without status migrainosus (principal); F41.9 Anxiety disorder, unspecified; F32.9 Major depressive disorder, single episode, unspecified
CPT/HCPCS: 70450; 81003; 81025; 96374; 96375; 99284; J2765

== ENCOUNTER 2020-02-20 00:32 | Emergency (ER) | payer SELFPAY ==
--- OUTSIDE RECORDS SUMMARY | 2020-02-20 00:33 | XMS REPORT | Continuity of Care Document ---
:1985 Author Organization [facility] t Address [address] [place] [address] Care Team Providers Name Role Phone Emely Galarza CNM Attending Clinician Problems This patient has no known problems. Allergies, Adverse Reactions, Alerts This patient has no known allergies or adverse reactions. Medications This patient has no known medications. Procedures This patient has no known procedures. Encounters Start End Encounter Admission Attending Care Care Encounter Source Date/Time Date/Time Type Type Clinicians Facility Department ID 2018-09-18 2018-10-11 Office DAMON Galarza [id number] 14:16:39 14:28:14 Visit Melinda [facility] [id number] [facility] [id number] Results This patient has no known results.
--- NOTE | 2020-02-20 01:39 | EDPHYS ---
Physician Documentation [facility] Name: Janelle Orr Age: 35 yrs Sex: Female : 1985 Arrival Date: 02/20/2020 Time: 00:34 Bed 13 Private MD: SHADI Physician Justin Cabrera HPI: 02/19 01:32 This 35 yrs old Female presents to ER via Ambulatory with complaints of Chest latanya Tightness, Covid+. 01:32 The patient or guardian reports chest pain that is located primarily in the substernal latanya area. The pain does not radiate. Associated signs and symptoms: Pertinent positives: shortness of breath. The chest pain is described as dull. Duration: The patient or guardian reports multiple episodes, with no pattern. Modifying factors: The symptoms are alleviated by nothing. the symptoms are aggravated by cough, movement. Severity of pain: At its worst the pain was mild in the emergency department the pain is unchanged. The patient has not experienced similar symptoms in the past. Historical: - Allergies: 01:31 No Known Allergies; sg - Home Meds: 01:31 Lamictal 200 mg Oral tab [Active]; Zoloft 150 mg Oral tab 1 tab once daily [Active]; sg - PMHx: 01:31 Anxiety; Depression; sg - PSHx: 01:31 open heart surgery at 10 years old; sg - Immunization history:: Adult Immunizations up to date. - Social history:: Smoking status: Patient denies any tobacco usage or history of. - Family history:: not pertinent. ROS: 01:32 Constitutional: Negative for fever, chills, and weight loss, Eyes: Negative for injury, latanya pain, redness, and discharge, ENT: Negative for injury, pain, and discharge, Neck: Negative for injury, pain, and swelling, Cardiovascular: Negative for chest pain, palpitations, and edema, Abdomen/GI: Negative for abdominal pain, nausea, vomiting, diarrhea, and constipation, Back: Negative for injury and pain, : Negative for injury, bleeding, discharge, and swelling, MS/Extremity: Negative for injury and deformity, Skin: Negative for injury, rash, and discoloration, Neuro: Negative for headache, weakness, numbness, tingling, and seizure. 01:32 Respiratory: Positive for cough, shortness of breath, on exertion. Exam: 01:32 Constitutional: This is a well developed, well nourished patient who is awake, alert, latanya and in no acute distress. Head/Face: Normocephalic, atraumatic. Eyes: Pupils equal round and reactive to light, extra-ocular motions intact. Lids and lashes normal. Conjunctiva and sclera are non-icteric and not injected. Cornea within normal limits. Periorbital areas with no swelling, redness, or edema. ENT: Nares patent. No nasal discharge, no septal abnormalities noted. Tympanic membranes are normal and external auditory canals are clear. Oropharynx with no redness, swelling, or masses, exudates, or evidence of obstruction, uvula midline. Mucous membranes moist. Neck: Trachea midline, no thyromegaly or masses palpated, and no cervical lymphadenopathy. Supple, full range of motion without nuchal rigidity, or vertebral point tenderness. No Meningismus. Chest/axilla: Normal chest wall appearance and motion. Nontender with no deformity. No lesions are appreciated. Cardiovascular: Regular rate and rhythm with a normal S1 and S2. No gallops, murmurs, or rubs. Normal PMI, no JVD. No pulse deficits. Respiratory: Lungs have equal breath sounds bilaterally, clear to auscultation and percussion. No rales, rhonchi or wheezes noted. No increased work of breathing, no retractions or nasal flaring. Abdomen/GI: Soft, non-tender, with normal bowel sounds. No distension or tympany. No guarding or rebound. No evidence of tenderness throughout. Back: No spinal tenderness. No costovertebral tenderness. Full range of motion. Skin: Warm, dry with normal turgor. Normal color with no rashes, no lesions, and no evidence of cellulitis. MS/ Extremity: Pulses equal, no cyanosis. Neurovascular intact. Full, normal range of motion. Neuro: Awake and alert, GCS 15, oriented to person, place, time, and situation. Cranial nerves II-XII grossly intact. Motor strength 5/5 in all extremities. Sensory grossly intact. Cerebellar exam normal. Normal gait. Psych: Awake, alert, with orientation to person, place and time. Behavior, mood, and affect are within normal limits. 01:32 Musculoskeletal/extremity: ROM: full active range of motion, full passive range of motion, Circulation is intact in all extremities. Sensation intact. Compartment Syndrome exam of affected extremity: is normal. DVT Exam: No signs of deep vein thrombosis. no pain, no swelling, no tenderness, negative Homans' sign noted on exam, no appreciated bluish discoloration, no erythema, no increased warmth. Vital Signs: 01:29 Pulse 98; Resp 18; Pulse Ox 97% on R/A; sg 01:55 BP 125 / 83; Pulse 65; Resp 16; Temp 98.1; Pulse Ox 100% ; sg MDM: 01:25 Patient medically screened. latanya 01:35 Differential diagnosis: pneumonia, pulmonary embolus. HEART Score: History: Slightly latanya Suspicious (0), Age: < or = 45 years (0), Risk Factors: No Risk Factors Known (0). The patient's deep vein thrombosis risk score was calculated as follows: Total Score: 0. This patient was found to be at low risk for a deep vein thrombosis by using the Well's assessment criteria. The patient's pulmonary embolism risk score was calculated as follows: Total Score: 0-2 points. This patient was found to be at low risk for a pulmonary embolism by using the Well's assessment criteria. NAKIA Risk Score: TOTAL SCORE = 0. Data reviewed: vital signs, nurses notes, radiologic studies, plain films. 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 Counseling: I had a detailed discussion with the patient and/or guardian regarding: the historical points, exam findings, and any diagnostic results supporting the discharge/admit diagnosis, lab results, radiology results. 02/19 01:32 Order name: Chest Single View XRAY latanya Administered Medications: 01:50 Drug: Decadron 10 mg Route: IM; Site: right deltoid; sg 01:50 Drug: Zithromax 500 mg Route: PO; sg 01:50 Drug: Pepcid 40 mg Route: PO; sg 01:50 Drug: Albuterol HFA Inhaler 4 puffs Route: Inhalation; sg 01:50 Drug: Aspirin 81 mg Route: PO; sg Disposition: 02/20/20 01:39 Discharged to Home. Impression: SARS-associated coronavirus as the cause of diseases classified elsewhere - covid 19, Acute upper respiratory infection, unspecified, Dyspnea. - Condition is Stable. - Discharge Instructions: Shortness of Breath, Upper Respiratory Infection, Adult, Viral Respiratory Infection, Cool Mist Vaporizer, Shortness of Breath, [id number], Upper Respiratory Infection, Adult, [id number], Aspirin and Your Heart, Cough, Adult, COVID-19. - Prescriptions for dexamethasone 2 mg Oral tablet - take 1 tablet by ORAL route 3 times per day; 15 tablet. Pepcid 20 mg Oral Tablet - take 1 tablet by ORAL route every 12 hours for 10 days; 20 tablet. Albuterol Sulfate 90 mcg/actuation - inhale 1-2 puff by INHALATION route every 4-6 hours; 1 Inhaler. Zithromax 500 mg Oral Tablet - take 1 tablet by ORAL route once daily for 4 days; 4 tablet. - Medication Reconciliation Form, Thank You Letter, Antibiotic Education, Prescription Opioid Use form. - Follow up: Private Physician; When: 2 - 3 days; Reason: Recheck today's complaints, Continuance of care, Re-evaluation by your physician. Follow up: Richard Garcia MD; When: 2 - 3 days; Reason: Recheck today's complaints, Re-evaluation by your physician. - Problem is new. - Symptoms have improved. Signatures: Dispatcher [employer] EDMS Higinio Ambriz RN RN sg Anderson, Corey, MD MD cha Corrections: (The following items were deleted from the chart) 02:41 01:39 02/20/2020 01:39 Discharged to Home. Impression: SARS-associated coronavirus as sg the cause of diseases classified elsewhere - covid 19; Acute upper respiratory infection, unspecified; Dyspnea. Condition is Stable. Forms are Medication Reconciliation Form, Thank You Letter, Antibiotic Education, Prescription Opioid Use. Follow up: Private Physician; When: 2 - 3 days; Reason: Recheck today's complaints, Continuance of care, Re-evaluation by your physician. Follow up: Richard Garcia; When: 2 - 3 days; Reason: Recheck today's complaints, Re-evaluation by your physician. Problem is new. Symptoms have improved. latanya
--- NOTE | 2020-02-20 01:39 | ER ---
Nurse's Notes [facility] Name: Janelle Orr Age: 35 yrs Sex: Female : 1985 Arrival Date: 02/20/2020 Time: 00:34 Bed 13 Private MD: Diagnosis: SARS-associated coronavirus as the cause of diseases classified elsewhere-covid 19;Acute upper respiratory infection, unspecified;Dyspnea Presentation: 02/19 01:29 Chief complaint: Patient states: Dahlia been having tightness in my chest and it just sg feels hard to breath, Im also COVID positive. no other symptoms reported for triage at this time. Coronavirus screen: Client presents with at least one sign or symptom that may indicate coronavirus-19. Standard/surgical mask placed on the client. Provider contacted for isolation considerations. Client reports previous positive COVID test result. Ebola Screen: Patient negative for fever greater than or equal to 101.5 degrees Fahrenheit, and additional compatible Ebola Virus Disease symptoms Patient denies exposure to infectious person. Patient denies travel to an Ebola-affected area in the 21 days before illness onset. No symptoms or risks identified at this time. Initial Sepsis Screen: Does the patient meet any 2 criteria? No. Patient's initial sepsis screen is negative. Does the patient have a suspected source of infection? No. Patient's initial sepsis screen is negative. Risk Assessment: Do you want to hurt yourself or someone else? Patient reports no desire to harm self or others. Onset of symptoms was February 20, 2020. Care prior to arrival: None. Transition of care: patient was not received from another setting of care. 01:29 Method Of Arrival: Ambulatory sg 01:29 Acuity: SHAGGY 4 sg Historical: - Allergies: 01:31 No Known Allergies; sg - Home Meds: 01:31 Lamictal 200 mg Oral tab [Active]; Zoloft 150 mg Oral tab 1 tab once daily [Active]; sg - PMHx: 01:31 Anxiety; Depression; sg - PSHx: 01:31 open heart surgery at 10 years old; sg - Immunization history:: Adult Immunizations up to date. - Social history:: Smoking status: Patient denies any tobacco usage or history of. - Family history:: not pertinent. Assessment: 01:55 Reassessment: Patient appears in no apparent distress at this time. Patient and/or sg family updated on plan of care and expected duration. Pain level reassessed. Patient is alert, oriented x 3, equal unlabored respirations, skin warm/dry/pink. Vital Signs: 01:29 Pulse 98; Resp 18; Pulse Ox 97% on R/A; sg 01:55 BP 125 / 83; Pulse 65; Resp 16; Temp 98.1; Pulse Ox 100% ; sg ED Course: 00:34 Patient arrived in ED. cl3 01:25 Justin Cabrera MD is Attending Physician. latanya 01:29 Arm band placed on. sg 01:30 Triage completed. sg 01:35 Heber Michael, RN is Primary Nurse. jb4 01:38 Richard Garcia MD is Referral Physician. latanya 02:03 Chest Single View XRAY In Process Unspecified. EDMS Administered Medications: 01:50 Drug: Decadron 10 mg Route: IM; Site: right deltoid; sg 01:50 Drug: Zithromax 500 mg Route: PO; sg 01:50 Drug: Pepcid 40 mg Route: PO; sg 01:50 Drug: Albuterol HFA Inhaler 4 puffs Route: Inhalation; sg 01:50 Drug: Aspirin 81 mg Route: PO; sg Outcome: 01:39 Discharge ordered by . latanya 02:41 Patient left the ED. sg Signatures: Dispatcher [employer] EDMS Higinio Ambriz, RN Justin Vazquez MD MD cha Bryson, James, RN RN jb4 Lewis, Charde cl3
[2020-02-20] MEDS ORDERED: dexAMETHasone 10 MG/ML VIAL ONE (01:54)
[2020-02-20] MEDS ORDERED: AZITHROMYCIN 250 MG TAB ONE (01:54)
[2020-02-20] MEDS ORDERED: ASPIRIN 81 MG CHEWABLE TABLET ONE (01:54)
[2020-02-20] MEDS ORDERED: ALBUTEROL INHALER 60 PUFF/8 GM IH ONE (01:55)
[2020-02-20] MEDS ORDERED: FAMOTIDINE 20 MG TAB ONE (01:55)
[2020-02-20 02:46] VITALS: BP 125/83; TEMP 98.1; O2SAT 100
--- NOTE | 2020-02-20 07:52 | RAD REPORT ---
EXAM DESCRIPTION: Alen Single View02/20/2020 2:03 am CLINICAL HISTORY: Cough COMPARISON: 2018 FINDINGS: The lungs appear clear of acute infiltrate. The heart is normal size. Postsurgical change s involve the chest IMPRESSION: No acute abnormalities displayed
== END 2020-02-20 02:41 | disposition home or self-care (01) ==
LOC: ER 00:32
DX: U07.1 COVID-19 (principal); J06.9 Acute upper respiratory infection, unspecified; F41.8 Other specified anxiety disorders
CPT/HCPCS: 71045; 96372; 99284; J1100

== ENCOUNTER 2022-08-03 14:28 | Emergency (ER) | payer SELFPAY ==
[2022-08-03] MEDS ORDERED: ONDANSETRON 4 MG/2 ML VIAL ONE (14:56)
[2022-08-03] MEDS ORDERED: MORPHINE 4 MG/ML SYR ONE (14:56)
[2022-08-03 15:04] LABS: Absolute Lymphocytes (CBC) 1.8 K/uL (0.7-4.9); Hematocrit 38.4 % (36.0-45.0); Lymphocytes % 13.9 % (15.3-44.8); MCV 85.7 fL (80-100); MPV 10.2 fL (7.6-11.3); RBC Red Blood Cell Count 4.48 M/uL (3.86-4.86)
[2022-08-03 15:09] LABS: Specific Gravity > 1.030 (1.005-1.030)
[2022-08-03 15:11] LABS: Specific Gravity > 1.030 (1.005-1.030); Urine Bacteria None Seen /HPF (<20); Urine Bilirubin NEGATIVE (Negative); Urine Blood Negative (Negative); Urine Clarity Clear (Clear); Urine Color Yellow (Yellow); Urine Glucose NEGATIVE (Negative); Urine Mucus 1+ /HPF (None Seen); Urine Protein 1+ (Negative); Urine Urobilinogen Normal (Normal); Urine pH 5.5 (5.0-7.0)
[2022-08-03 15:32] LABS: Albumin 4.2 g/dL (3.4-5.0); Bilirubin Total 0.3 mg/dL (0.2-1.0); Potassium 3.6 mEq/L (3.5-5.1)
--- NOTE | 2022-08-03 16:45 | RAD REPORT ---
EXAM DESCRIPTION: US - Pelvis Complete - 08/03/2022 3:45 pm CLINICAL HISTORY: right pelvic pain COMPARISON: Pelvis dated 08/14/2015; Abdomen Pelvis W Contrast dated 08/03/2022; Transvaginal Study Probe dated 08/03/2022 TECHNIQUE: Sonographic grayscale and color flow images of the pelvis were obtained through transab dominal and transvaginal approaches. FINDINGS: Technically limited exam due to difficult positioning and patient's limited pain tolerance . The uterus appears normal in size, shape, without a suspicious focal myometrial lesion within the afo rementioned limitations, measuring 9.9 centimeter in length. IUD appears to be in satisfactory positi on. Small nabothian cyst measuring 1.8 centimeter in greatest dimension. The endometrial stripe was not well evaluated. Both ovaries are normal in size, shape and echotexture. The right ovary measures 5.9 x 5.6 x 4.7 william timeter, containing a mildly complex rounded 4.9 x 4.3 x 4.3 centimeter cyst. An adjacent, slightly m ore superficial lobulated complex part cystic and part solid lesion is present, measuring 4.7 x 5.5 x 4.5 centimeter. The left ovary could not be satisfactorily measured. No left ovarian or parovarian lesions. Normal Doppler blood flow was demonstrated to both ovaries. No significant pelvic ascites. IMPRESSION: Complex part cystic and part solid right adnexal 4.7 x 4.5 x 5.5 centimeter lesion, inde terminate. Possible etiologies include sequelae of infection or inflammation, although neoplastic pro cesses cannot be entirely excluded. A follow-up pelvic ultrasound in 6-10 weeks is recommended to ens ure resolution. Additional 4.9 centimeter mildly complex right ovarian cystic lesion is noted. Exam is technically limited as detailed above. IUD appears to be in satisfactory position within thes e limitations.
--- NOTE | 2022-08-03 16:46 | RAD REPORT ---
EXAM DESCRIPTION: US - Transvaginal Study Probe - 08/03/2022 3:50 pm CLINICAL HISTORY: IUD COMPARISON: Pelvis Complete dated 08/03/2022 TECHNIQUE: Sonographic grayscale and color flow images of the pelvis were obtained through transabd ominal and transvaginal approaches. FINDINGS: Technically limited exam due to difficult positioning and patient's limited pain tolerance . The uterus appears normal in size, shape, without a suspicious focal myometrial lesion within the afo rementioned limitations, measuring 9.9 centimeter in length. IUD appears to be in satisfactory positi on. Small nabothian cyst measuring 1.8 centimeter in greatest dimension. The endometrial stripe was not well evaluated. Both ovaries are normal in size, shape and echotexture. The right ovary measures 5.9 x 5.6 x 4.7 william timeter, containing a mildly complex rounded 4.9 x 4.3 x 4.3 centimeter cyst. An adjacent, slightly m ore superficial lobulated complex part cystic and part solid lesion is present, measuring 4.7 x 5.5 x 4.5 centimeter. The left ovary could not be satisfactorily measured. No left ovarian or parovarian lesions. Normal Doppler blood flow was demonstrated to both ovaries. No significant pelvic ascites. IMPRESSION: Complex part cystic and part solid right adnexal 4.7 x 4.5 x 5.5 centimeter lesion, inde terminate. Possible etiologies include sequelae of infection or inflammation, although neoplastic pro cesses cannot be entirely excluded. A follow-up pelvic ultrasound in 6-10 weeks is recommended to ens ure resolution. Additional 4.9 centimeter mildly complex right ovarian cystic lesion is noted. Exam is technically limited as detailed above. IUD appears to be in satisfactory position within thes e limitations.
--- NOTE | 2022-08-03 17:04 | RAD REPORT ---
EXAM DESCRIPTION: CT - Abdomen Pelvis W Contrast - 08/03/2022 3:57 pm CLINICAL HISTORY: RLL and right flank pain COMPARISON: No comparisons TECHNIQUE: Thin cut axial CT imaging of the abdomen and pelvis was performed following intravenous a dministration of 100 mL Isovue 300. Multiplanar reformats were generated and reviewed. All CT scans are performed using dose optimization technique as appropriate and may include automated exposure control or mA/KV adjustment according to patient size. FINDINGS: No suspicious findings in the lung bases. The liver, spleen, and pancreas show no suspicious findings. Gallbladder and biliary tree are also wi thout suspicious finding. Symmetric renal function is seen with no hydronephrosis or suspicious renal mass. No dilated bowel loops or bowel wall thickening. No free air, free fluid or inflammatory stranding. N o hernia, mass or bulky lymphadenopathy. The urinary bladder is suboptimally distended, limiting eval uation. IUD in place. Uterus is retroflexed. Complex right adnexal cystic lesion, with multiloculated complex cystic component at its mid aspect anteriorly, as seen on axial image 75/101, and nodular hyperdense components, such as seen on axial image 72/101. Overall, this measures 6.0 x 4.5 x 9.5 centimeter. I ts components are somewhat better resolved on pelvic ultrasound of the same day. Trace fluid is seen in the cul-de-sac, nonspecific and probably physiologic. No suspicious bony findings. IMPRESSION: No acute intra-abdominal process. Complex right adnexal cystic lesion as above, component are somewhat better resolved on ultrasound sa me day. As recommended on the ultrasound evaluation, repeat sonographic imaging follow-up is recommen ded in 6-10 weeks to re-evaluate this finding.
--- NOTE | 2022-08-03 17:36 | ER ---
Nurse's Notes [facility] Name: Janelle Alexander Age: 37 yrs Sex: Female : 1985 Arrival Date: 08/03/2022 Time: 14:28 Bed 17 Private MD: Diagnosis: Other and unspecified ovarian cysts;Lower abdominal pain, unspecified Presentation: 08/03 14:37 Chief complaint: Patient states: RLQ/groin pain that started approx 4 hours ago, also ph reports nausea, no vomiting. Coronavirus screen: Vaccine status: Patient reports being unvaccinated. Ebola Screen: No symptoms or risks identified at this time. Initial Sepsis Screen: Does the patient meet any 2 criteria? No. Patient's initial sepsis screen is negative. Does the patient have a suspected source of infection? No. Patient's initial sepsis screen is negative. Risk Assessment: Do you want to hurt yourself or someone else? Patient reports no desire to harm self or others. Onset of symptoms was August 03, 2022. 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 - Social history:: Smoking status: Patient denies any tobacco usage or history of. - Family history:: not pertinent. - Hospitalizations: : No recent hospitalization is reported. Screenin:15 [facility] ED Fall Risk Assessment (Adult) History of falling in the last 3 months, ph including since admission No falls in past 3 months (0 pts) Confusion or Disorientation No (0 pts) Intoxicated or Sedated No (0 pts) Impaired Gait No (0 pts) Mobility Assist Device Used No (0 pt) Altered Elimination No (0 pt) Score/Fall Risk Level 0 - 2 = Low Risk Oriented to surroundings, Maintained a safe environment, Hourly rounding (assess needs \T\ fall precautionary measures) done. Abuse screen: Denies threats or abuse. Denies injuries from another. Nutritional screening: No deficits noted. Tuberculosis screening: No symptoms or risk factors identified. Assessment: 14:45 General: Appears in no apparent distress. uncomfortable, Behavior is calm, cooperative, eh3 appropriate for age. Pain: Complains of pain in abdomen. Neuro: Level of Consciousness is awake, alert, obeys commands, Oriented to person, place, time, situation. Cardiovascular: Capillary refill < 3 seconds Patient's skin is warm and dry. Respiratory: Airway is patent Respiratory effort is even, unlabored, Respiratory pattern is regular, symmetrical. GI: Abdomen is round non-distended. Derm: Skin is pink, warm \T\ dry. Musculoskeletal: Circulation, motion, and sensation intact. 15:30 Reassessment: Patient appears in no apparent distress at this time. Patient and/or eh3 family updated on plan of care and expected duration. Pain level reassessed. Patient is alert, oriented x 3, equal unlabored respirations, skin warm/dry/pink. 16:30 Reassessment: Patient appears in no apparent distress at this time. Patient and/or eh3 family updated on plan of care and expected duration. Pain level reassessed. Patient is alert, oriented x 3, equal unlabored respirations, skin warm/dry/pink. Vital Signs: 14:37 BP 142 / 88; Pulse 82; Resp 18; Temp 98.4; Pulse Ox 98% on R/A; Weight 90.72 kg; Height ph 5 ft. 4 in. ; 15:30 BP 140 / 90; Pulse 72; Resp 18; Pulse Ox 100% on R/A; eh3 16:30 BP 127 / 70; Pulse 69; Resp 18; Pulse Ox 99% on R/A; eh3 14:37 Body Mass Index 34.33 (90.72 kg, 162.56 cm) ph ED Course: 14:29 Patient arrived in ED. rg4 14:29 Stefano Montnaez MD is Attending Physician. rn 14:35 Initial lab(s) drawn, by ne, sent to lab. Urine collected: clean catch specimen. ph Inserted saline lock: 20 gauge in right antecubital area, using aseptic technique. Blood collected. 14:41 Triage completed. ph 14:41 Arm band placed on. ph 14:55 Marlyn Livingston RN is Primary Nurse. eh3 15:15 Patient has correct armband on for positive identification. Bed in low position. Call ph light in reach. Side rails up X 1. Pulse ox on. NIBP on. Door closed. Noise minimized. Warm blanket given. 15:47 US Pelvis Complete In Process Unspecified. EDMS 15:51 Transvaginal Study Probe In Process Unspecified. EDMS 15:59 CT Abd/Pelvis - IV Contrast Only In Process Unspecified. EDMS 17:35 Ivy Simpson MD is Referral Physician. rn Administered Medications: 14:50 Drug: Ondansetron IVP 4 mg Route: IVP; Site: right antecubital; ph 16:00 Follow up: Response: No adverse reaction 3 14:50 Drug: morphine IVP or IV 4 mg Route: IVP; Infused Over: 4 mins; Site: right antecubital;ph 16:00 Follow up: Response: No adverse reaction 3 Medication: 15:16 VIS not applicable for this client. ph Outcome: 17:35 Discharge ordered by . rn 18:08 Patient left the ED. 3 Signatures: Dispatcher [employer] EDMS Stefano Montanez MD MD rn Hall, Patricia, RN RN ph Garcia, Rubi 4 Marlyn Livingston RN RN 3
--- NOTE | 2022-08-03 17:36 | EDPHYS ---
Physician Documentation [facility] Name: Janelle Alexander Age: 37 yrs Sex: Female : 1985 Arrival Date: 08/03/2022 Time: 14:28 Bed 17 Private MD: ED Physician Stefano Montanez HPI: 08/03 14:41 This 37 yrs old Female presents to ER via Ambulatory with complaints of Low Abd Pain. rn 14:41 The patient presents with abdominal pain right lower quadrant. Onset: The rn symptoms/episode began/occurred 4 hour(s) ago. The symptoms radiate to the right flank. Associated signs and symptoms: Pertinent positives: nausea, Pertinent negatives: blood in stools, chest pain, diarrhea, fever, shortness of breath, vaginal discharge. The symptoms are described as sharp, stabbing. Modifying factors: The symptoms are alleviated by nothing, the symptoms are aggravated by movement, touching the area. Severity of pain: At its worst the pain was moderate in the emergency department the pain is unchanged. The patient has not experienced similar symptoms in the past. The patient has not recently seen a physician. 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 - Social history:: Smoking status: Patient denies any tobacco usage or history of. - Family history:: not pertinent. - Hospitalizations: : No recent hospitalization is reported. ROS: 14:41 Constitutional: Negative for fever, chills, and weight loss, Neck: Negative for injury, rn pain, and swelling, Cardiovascular: Negative for chest pain, palpitations, and edema, Respiratory: Negative for shortness of breath, cough, wheezing, and pleuritic chest pain, Abdomen/GI: + RLQ and pelvic pain, + right flank pain Back: Negative for injury : Negative for injury, bleeding, discharge, and swelling, MS/Extremity: Negative for injury and deformity, Skin: Negative for injury, rash, and discoloration, Neuro: Negative for headache, weakness, numbness, tingling, and seizure. Exam: 14:41 Constitutional: This is a well developed, well nourished patient who is awake, alert, rn appears uncomfortable Head/Face: Normocephalic, atraumatic. Cardiovascular: Regular rate and rhythm. No pulse deficits. Respiratory: No increased work of breathing, no retractions or nasal flaring. Abdomen/GI: soft, + RLQ tenderness, no rebound Back: No spinal tenderness. Skin: Warm, dry MS/ Extremity: Pulses equal, no cyanosis. Neuro: Awake and alert, GCS 15 Vital Signs: 14:37 BP 142 / 88; Pulse 82; Resp 18; Temp 98.4; Pulse Ox 98% on R/A; Weight 90.72 kg; Height ph 5 ft. 4 in. ; 15:30 BP 140 / 90; Pulse 72; Resp 18; Pulse Ox 100% on R/A; eh3 16:30 BP 127 / 70; Pulse 69; Resp 18; Pulse Ox 99% on R/A; eh3 14:37 Body Mass Index 34.33 (90.72 kg, 162.56 cm) ph MDM: 14:29 Patient medically screened. rn 17:32 Differential diagnosis: appendicitis, bowel obstruction, diverticulitis, non-specific rn abd pain, Ovarian Torsion, Tubal Ovarian Abcess, Ureterolithiasis, urinary tract infection, ovarian cyst. Data reviewed: vital signs, nurses notes, lab test result(s), radiologic studies, CT scan, ultrasound, and as a result, I will discharge patient. Counseling: I had a detailed discussion with the patient and/or guardian regarding: the historical points, exam findings, and any diagnostic results supporting the discharge/admit diagnosis, lab results, radiology results, the need for outpatient follow up, to return to the emergency department if symptoms worsen or persist or if there are any questions or concerns that arise at home. Response to treatment: the patient's symptoms have markedly improved after treatment, and as a result, I will discharge patient. Special discussion: I discussed with the patient/guardian in detail that at this point there is no indication for admission to the hospital. It is understood, however, that if the symptoms persist or worsen the patient needs to return immediately for re-evaluation. Based on the history and exam findings, there is no indication for further emergent testing or inpatient evaluation. I discussed with the patient/guardian the need to see the OB Gyne specialist for further evaluation of the symptoms. ED course: Pt notified of 2 complex cystic masses in right pelvis, no need for emergent admission or surgery, pt will make appt with PROVISIONING ANALYST for further eval of masses. . 08/03 14:41 Order name: CBC with Diff; Complete Time: 15:33 rn 08/03 14:41 Order name: CMP; Complete Time: 15:33 rn 08/03 14:41 Order name: Lipase; Complete Time: 15:33 rn 08/03 14:41 Order name: Test, Urine; Complete Time: 15:33 rn 08/03 14:41 Order name: Urinalysis w/ reflexes; Complete Time: 15:33 rn 08/03 14:41 Order name: CT Abd/Pelvis - IV Contrast Only; Complete Time: 17:08 rn 08/03 14:41 Order name: US Pelvis Complete; Complete Time: 16:59 rn 08/03 15:04 Order name: Transvaginal Study Probe; Complete Time: 16:59 EDOK 08/03 14:41 Order name: IV Saline Lock; Complete Time: 15:15 rn 08/03 14:41 Order name: Labs collected and sent; Complete Time: 15:15 rn Administered Medications: 14:50 Drug: Ondansetron IVP 4 mg Route: IVP; Site: right antecubital; ph 16:00 Follow up: Response: No adverse reaction eh3 14:50 Drug: morphine IVP or IV 4 mg Route: IVP; Infused Over: 4 mins; Site: right antecubital;ph 16:00 Follow up: Response: No adverse reaction eh3 Disposition Summary: 08/03/22 17:35 Discharge Ordered Location: Home rn Problem: new rn Symptoms: have improved rn Condition: Stable rn Diagnosis - Other and unspecified ovarian cysts rn - Lower abdominal pain, unspecified rn Followup: rn - With: Ivy Simpson MD - When: As needed - Reason: Recheck today's complaints, Re-evaluation by your physician Discharge Instructions: - Discharge Summary Sheet rn - Abdominal Pain, Adult rn - Ovarian Cyst rn Forms: - Medication Reconciliation Form rn - Thank You Letter rn - Antibiotic tavern keeper - Prescription Opioid Use rn Prescriptions: - Diclofenac Sodium 75 mg Oral tablet,delayed release (DR/EC) - take 1 tablet by ORAL route 2 times per day; 20 tablet; Refills: 0, Product rn Selection Permitted - Tramadol 50 mg Oral Tablet - take 1 tablet by ORAL route every 8 hours as needed; 12 tablet; Refills: 0, rn Product Selection Permitted Signatures: Dispatcher [employer] Stefano Dougherty MD MD rn [place], JUAN Hinojosa RN [facility], Marlyn MARTINEZ [facility]
[2022-08-03] MEDS ORDERED: KETOROLAC 30 MG/ML INJ ONE (18:08)
[2022-08-03 18:41] VITALS: TEMP 98.4
[2022-08-03 18:45] VITALS: BP 127/70; O2SAT 99
== END 2022-08-03 18:08 | disposition home or self-care (01) ==
LOC: ER 14:28
DX: N83.299 Other ovarian cyst, unspecified side (principal)
CPT/HCPCS: 36415; 74177; 76830; 76856; 80053; 81001; 81025; 83690; 85025; 96374; 96375; 99284; J2405; Q9967